=== PATIENT | male | born 1985 | race Caucasian/White ===

== ENCOUNTER 2018-06-08 20:45 | Emergency (ER) | payer OTHER ==
[~2018-06-08] VITALS: Ht 167.6 cm; Wt 81.6 kg
[2018-06-08 20:54] VITALS: Ht 167.6 cm; Wt 81.6 kg
[2018-06-08 22:11] VITALS: BP 142/86
== END 2018-06-08 22:11 | disposition home or self-care (01) ==
LOC: ED 20:45
DX: S60.221A Contusion of right hand, initial encounter (principal); W22.8XXA Striking against or struck by other objects, initial encounter; Y93.89 Activity, other specified; Y92.89 Other specified places as the place of occurrence of the external cause; Y99.8 Other external cause status
CPT/HCPCS: Q0092